=== PATIENT | male | born 1965 | race Hispanic/Latino ===

== ENCOUNTER 2019-09-02 21:15 | Emergency (ER) | payer SELFPAY ==
[2019-09-02 21:47] VITALS: BP 144/80
--- NOTE | 2019-09-02 21:49 | Emergency Department Report ---
ED ENT HPI - General Chief complaint: Dental/Oral Stated complaint: TOOTHACHE Time Seen by Provider: 09/02/19 21:34 Source: patient Mode of arrival: Ambulatory Limitations: No Limitations - History of Present Illness Initial comments: This is a 53-year-old male who presents to the emergency room with left-sided upper dental pain for 2 days. Reports a history of dental pain for months but can't afford to follow up with a dentist. States "All my teeth are jacked up". He is taking [id number] medication with no improvement of symptoms. Denies drooling, hoarseness, fever, or jaw pain. MD complaint: tooth pain Onset/Timin -: days(s) Location: tooth # (#12, 13, & 14) Severity: severe Severity scale (0 -10): 10 Quality: constant Consistency: constant Improves with: none Worsens with: eating Context- Dental: history of dental caries, poor dental care Associated Symptoms: gum swelling, toothache. denies: fever, pain with swallowing, sore throat - Related Data Previous Rx's Medication Instructions Recorded Last Taken Type DOXYCYCLINE Hyclate [Vibramycin 100 mg PO DAILY #21 capsule 10/13/15 Unknown Rx CAP] Clindamycin [Clindamycin CAP] 300 mg PO Q8H #21 cap 09/02/19 Unknown Rx traMADoL [Ultram 50 MG tab] 50 mg PO Q6HR PRN #12 tablet 09/02/19 Unknown Rx Allergies Allergy/AdvReac Type Severity Reaction Status Date / Time Penicillins Allergy Angioedema Verified 09/02/19 21:19 ED Dental HPI - General Chief complaint: Dental/Oral Stated complaint: TOOTHACHE Time Seen by Provider: 09/02/19 21:34 Source: patient Mode of arrival: Ambulatory Limitations: No Limitations - Related Data Previous Rx's Medication Instructions Recorded Last Taken Type DOXYCYCLINE Hyclate [Vibramycin 100 mg PO DAILY #21 capsule 10/13/15 Unknown Rx CAP] Clindamycin [Clindamycin CAP] 300 mg PO Q8H #21 cap 09/02/19 Unknown Rx traMADoL [Ultram 50 MG tab] 50 mg PO Q6HR PRN #12 tablet 09/02/19 Unknown Rx Allergies Allergy/AdvReac Type Severity Reaction Status Date / Time Penicillins Allergy Angioedema Verified 09/02/19 21:19 ED Review of Systems ROS: Stated complaint: TOOTHACHE Other details as noted in HPI Constitutional: denies: chills, fever ENT: dental pain. denies: ear pain, throat pain, congestion Respiratory: denies: cough, shortness of breath, wheezing Cardiovascular: denies: chest pain, palpitations Gastrointestinal: denies: abdominal pain, nausea, diarrhea Skin: denies: rash, lesions Neurological: denies: headache, weakness, paresthesias Psychiatric: denies: anxiety, depression ED Past Medical Hx - Past Medical History Previous Medical History?: No - Surgical History Past Surgical History?: Yes Additional Surgical History: Liver - Social History Smoking Status: Current Every Day Smoker Substance Use Type: None - Medications Home Medications: Home Medications Medication Instructions Recorded Confirmed Last Taken Type DOXYCYCLINE Hyclate [Vibramycin 100 mg PO DAILY #21 capsule 10/13/15 Unknown Rx CAP] Clindamycin [Clindamycin CAP] 300 mg PO Q8H #21 cap 09/02/19 Unknown Rx traMADoL [Ultram 50 MG tab] 50 mg PO Q6HR PRN #12 tablet 09/02/19 Unknown Rx ED Physical Exam - General Limitations: No Limitations General appearance: alert, in no apparent distress - ENT ENT exam: Present: normal orophraynx, mucous membranes moist, TM's normal bilaterally, normal external ear exam, other (dark brown dental caries to gum line, #12, #13, #14, gingival swelling, ttp) - Respiratory Respiratory exam: Present: normal lung sounds bilaterally. Absent: respiratory distress - Cardiovascular Cardiovascular Exam: Present: regular rate, normal rhythm. Absent: systolic murmur, diastolic murmur, rubs, gallop - GI/Abdominal GI/Abdominal exam: Present: soft, normal bowel sounds - Extremities Exam Extremities exam: Present: normal inspection - Neurological Exam Neurological exam: Present: alert, oriented X3 - Psychiatric Psychiatric exam: Present: normal affect, normal mood - Skin Skin exam: Present: warm, dry, intact, normal color. Absent: rash ED Medical Decision Making - Medical Decision Making This is a 53-year-old male who presents to the emergency room with dental pain for 2 days. Vitals are stable. No significant past medical history. Signs of poor dentition on exam, #12, 13, and 14 dental caries with gingival swelling. Start amoxicillin, tramadol, and Magic mouthwash. Discussed plan with patient. He agreed with ER plan. Discharged home stable with strict return instructions. Referral to emergency dental clinic and given handout. Critical care attestation.: If time is entered above; I have spent that time in minutes in the direct care of this critically ill patient, excluding procedure time. ED Disposition Clinical Impression: Dental caries, Toothache Disposition: TO HOME OR SELFCARE Is pt being admited?: No Condition: Stable Instructions: Dental Caries (ED), Toothache (ED) Additional Instructions: Complete all days of antibiotics as prescribed for 7 days. Follow up with Dentist from the referrals list below or the handout for community resources. Prescriptions: Clindamycin [Clindamycin CAP] 300 mg PO Q8H #21 cap traMADoL [Ultram 50 MG tab] 50 mg PO Q6HR PRN #12 tablet PRN Reason: Pain Referrals: [facility] [Outside] - 3-[address] [facility] [Outside] - 3-5 Days [facility] [Outside] - 3-5 Days Time of Disposition: 21:59
== END 2019-09-02 22:10 | disposition home or self-care (01) ==
LOC: ED 21:15
DX: K02.9 Dental caries, unspecified (principal); F17.200 Nicotine dependence, unspecified, uncomplicated; Z79.899 Other long term (current) drug therapy
CPT/HCPCS: 99281

== ENCOUNTER 2020-08-27 16:34 | Emergency (ER) | payer SELFPAY ==
[2020-08-27 16:41] VITALS: BP 112/62
--- NOTE | 2020-08-27 20:45 | Emergency Department Report ---
Chief Complaint: Fever Stated Complaint: CHILLS/FEVER Time Seen by Provider: 08/27/20 20:24 - HPI History of Present Illness: 54-year-old male who reports a history of tobacco use but no other significant past history presents to the ER today with complaints of fever and chills. Patient states that symptoms started earlier today. He states that his temperature got as high as 107. He states that he took 2 Tylenol around 12 PM. He reports mild cough and mild generalized body aches but denies any shortness of breath, chest pain, wheezing, abdominal pain, URI symptoms or sore throat. He denies any UTI symptoms. He denies any known COVID-19 contacts or any appar ent ill contacts. He denies any recent travel. She states that he was open to get a COVID-19 test today. - Exam Vital Signs: Vital Signs 08/27/20 16:36 Temperature 99.2 F Pulse Rate 105 H Respiratory 18 Rate Blood Pressure 112/62 O2 Sat by Pulse 100 Oximetry MSE screening note: Focused history and physical exam performed. Due to findings the following was ordered: ED Medical Decision Making - Medical Decision Making 54-year-old male who reports a history of tobacco use but no other significant past history presents to the ER today with complaints of fever and chills. Patient states that symptoms started earlier today. He states that his temp erature got as high as 107. He states that he took 2 Tylenol around 12 PM. He reports mild cough and mild generalized body aches but denies any shortness of breath, chest pain, wheezing, abdominal pain, URI symptoms or sore throat. He denies any UTI symptoms. He denies any known COVID-19 contacts or any apparent ill contacts. He denies any recent travel. She states that he was open to get a COVID-19 test today. Patient is well-appearing, not toxic and does not appear to be in any acute pain or respiratory distress. He appears hydrated. He is neurologically intact with a normal gait in the ER. He is mildly tacky at 105 but remaining vitals are stable. Based on patient's physical exam and history at this time I do not suspect severe pneumonia, meningitis, sepsis or any other bacterial infection or any other emergent issues at this time. Informed patient that at this time we are not doing COVID-19 test on patients or being discharged from the ER. Informed him that he can follow-up with local urgent cares or [facility]- through's to get a outpatient COVID-19 test. Patient was stable at time of discharge. ED Disposition for MSE Clinical Impression: Viral illness Disposition: DC-01 TO HOME OR SELFCARE Condition: Stable ED Review of Systems ROS: Stated complaint: CHILLS/FEVER Other details as noted in HPI Comment: All other systems reviewed and negative Constitutional: chills, fever Eyes: denies: eye pain, eye discharge, vision change ENT: denies: ear pain, throat pain Respiratory: cough. denies: shortness of breath, SOB with exertion, SOB at rest, wheezing Cardiovascular: denies: palpitations, dyspnea on exertion, edema, syncope, paroxysmal nocturnal dyspnea Gastrointestinal: denies: abdominal pain, nausea, vomiting, diarrhea, constipation, hematemesis, melena, hematochezia Genitourinary: denies: urgency Musculoskeletal: myalgia. denies: back pain, joint swelling, arthralgia Skin: denies: rash, lesions, change in color, change in hair/nails, pruritus Neurological: denies: headache, weakness, paresthesias Psychiatric: denies: anxiety, depression, auditory hallucinations, visual hallucinations, homicidal thoughts, suicidal thoughts Hematological/Lymphatic: denies: easy bleeding, easy bruising ED Physical Exam - General Limitations: No Limitations General appearance: alert, in no apparent distress - Head Head exam: Present: atraumatic, normocephalic, normal inspection - Eye Eye exam: Present: normal appearance, PERRL, EOMI Pupils: Present: normal accommodation - ENT ENT exam: Present: normal exam, mucous membranes moist, TM's normal bilaterally - Neck Neck exam: Present: normal inspection, full ROM. Absent: meningismus - Respiratory Respiratory exam: Present: normal lung sounds bilaterally. Absent: respiratory distress - Cardiovascular Cardiovascular Exam: Present: regular rate, normal rhythm, normal heart sounds - GI/Abdominal GI/Abdominal exam: Present: soft. Absent: distended, tenderness, guarding - Neurological Exam Neurological exam: Present: alert, oriented X3, CN II-XII intact, normal gait - Psychiatric Psychiatric exam: Present: normal affect, normal mood - Skin Skin exam: Present: intact
== END 2020-08-27 21:30 | disposition left against medical advice (07) ==
LOC: ED 16:34
DX: B34.9 Viral infection, unspecified (principal)
CPT/HCPCS: 99281